=== PATIENT | female | born 1965 ===

== ENCOUNTER 2017-10-30 11:21 | Inpatient (IN) | payer OTHER ==
[2017-10-30 11:33] VITALS: O2SAT 100; BMI 16.9
--- NOTE | 2017-10-30 12:18 | ED PDOC ---
HPI: Psych/Substance Abuse Time Seen by Provider: 10/30/17 12:10 Chief Complaint (Nursing): Psychiatric Evaluation Chief Complaint (Provider): crisis eval History Per: Patient Additional Complaint(s): 52-year-old female presents to emergency department with family member at bedside for evaluation by crisis. Patient has been feeling overly emotional and sad for the past several months. Family member at bedside states the patient cries about everything and feels guilty most of the time. Patient also has bouts of anxiety and panic attacks. Patient does not take any medications for anxiety and depression. She denies any suicidal or homicidal ideation. No associated alcohol or drug use. PMD: none Past Medical History Reviewed: Historical Data, Nursing Documentation, Vital Signs Vital Signs: Last Vital Signs Temp 97 F L 10/30/17 11:31 Pulse 71 10/30/17 11:31 Resp 20 10/30/17 11:31 BP 131/77 10/30/17 11:31 Pulse Ox 100 10/30/17 11:31 - Medical History PMH: No Chronic Diseases - Surgical History Other surgeries: tubal ligation - Family History Family History: States: No Known Family Hx - Living Arrangements Living Arrangements: With Family - Social History Current smoker - smoking cessation education provided: No Alcohol: None Drugs: Denies - Allergies Allergies/Adverse Reactions: Allergies Allergy/AdvReac Type Severity Reaction Status Date / Time No Known Allergies Allergy Verified 10/30/17 12:19 Review of Systems ROS Statement: Except As Marked, All Systems Reviewed And Found Negative Constitutional: Negative for: Fever Cardiovascular: Negative for: Chest Pain Respiratory: Negative for: Cough Gastrointestinal: Negative for: Nausea, Vomiting Psych: Positive for: Other (sadness, crying). Negative for: Suicidal ideation Physical Exam - Reviewed Nursing Documentation Reviewed: Yes Vital Signs Reviewed: Yes - Physical Exam Appears: Positive for: Well, Non-toxic, No Acute Distress Skin: Positive for: Normal Color. Negative for: Rash Eye Exam: Positive for: Normal appearance Cardiovascular/Chest: Positive for: Regular Rate, Rhythm Respiratory: Positive for: Normal Breath Sounds. Negative for: Respiratory Distress Extremity: Positive for: Normal ROM Neurologic/Psych: Positive for: Alert, Oriented, Mood/Affect (flat) - Laboratory Results Result Diagrams: 10/30/17 14:00 10/30/17 14:00 - ECG Interpretation Of ECG: NSR 61 bpm, no acute changes, reviewed by PA and ED attending O2 Sat by Pulse Oximetry: 100 Pulse Ox Interpretation: Normal - Other Rad CXR X-Ray: Interpreted by Me, Viewed By Me X-Ray Interpretation: no acute finding Medical Decision Making Medical Decision Makin52 y/o female here for crisis eval Plan: Crisis consult As per crisis counselor and psychiatrist senior environmental engineer, Dr. Manzanares, patient does meet criteria for admission. Patient agrees and signed herself in. UTI noted, macrobid ordered. Patient is medically stable for psychiatric admission. Disposition - Clinical Impression Clinical Impression: Depression - Patient ED Disposition Is Patient to be Admitted: Yes - Disposition Disposition Time: 14:03 Condition: FAIR Forms: [employer] (Kosovan) - Pt Status Changed To: Hospital Disposition Of: Inpatient - Admit Certification Admit to Inpatient:: After my assessment, the patient will require hospitalization for at least two midnights. This is because of the severity of symptoms shown, intensity of services needed, and/or the medical risk in this patient being treated as an outpatient. - POA Present On Arrival: None Results - Lab Results Lab Results: 10/30/17 10/30/17 10/30/17 14:26 14:26 14:00 WBC RBC Hgb Hct MCV MCH MCHC RDW Plt Count MPV Neut % (Auto) Lymph % (Auto) [place] % (Auto) Eos % (Auto) Baso % (Auto) Neut # (Auto) Lymph # (Auto) [place] # (Auto) Eos # (Auto) Baso # (Auto) Sodium 142 Potassium 4.9 Chloride 103 Carbon Dioxide 33 H Anion Gap 11 BUN 9 Creatinine 0.5 L Est GFR ( Amer) > 60 Est GFR (Non-Af Amer) > 60 Random Glucose 96 Calcium 9.7 Total Bilirubin 0.3 AST 44 H ALT 35 Alkaline Phosphatase 67 Total Protein 7.5 Albumin 4.5 Globulin 3.0 Albumin/Globulin Ratio 1.5 Urine Color Yellow Urine Clarity Clear Urine pH 7.0 Ur Specific [place] 1.008 Urine Protein Negative Urine Glucose (UA) Neg Urine Ketones Negative Urine Blood Moderate Urine Nitrate Negative Urine Bilirubin Negative Urine Urobilinogen 0.2-1.0 Ur Leukocyte Esterase Trace Urine RBC (Auto) 10 H Urine Microscopic WBC 6 H Ur Squamous Epith Cells 1 Urine Bacteria Rare Urine Opiates Screen Negative Urine Methadone Screen Negative Ur Barbiturates Screen Negative Ur Phencyclidine Scrn Negative Ur Amphetamines Screen Negative U Benzodiazepines Scrn Negative U Oth Cocaine Metabols Negative U Cannabinoids Screen Negative Alcohol, Quantitative < 10 10/30/17 14:00 WBC 5.9 RBC 4.45 Hgb 12.6 Hct 37.7 MCV 84.7 MCH 28.3 MCHC 33.4 RDW 14.1 Plt Count 286 MPV 7.3 Neut % (Auto) 63.1 Lymph % (Auto) 27.0 [place] % (Auto) 7.8 Eos % (Auto) 0.7 Baso % (Auto) 1.4 Neut # (Auto) 3.8 Lymph # (Auto) 1.6 [place] # (Auto) 0.5 Eos # (Auto) 0.0 Baso # (Auto) 0.1 Sodium Potassium Chloride Carbon Dioxide Anion Gap BUN Creatinine Est GFR ( Amer) Est GFR (Non-Af Amer) Random Glucose Calcium Total Bilirubin AST ALT Alkaline Phosphatase Total Protein Albumin Globulin Albumin/Globulin Ratio Urine Color Urine Clarity Urine pH Ur Specific [place] Urine Protein Urine Glucose (UA) Urine Ketones Urine Blood Urine Nitrate Urine Bilirubin Urine Urobilinogen Ur Leukocyte Esterase Urine RBC (Auto) Urine Microscopic WBC Ur Squamous Epith Cells Urine Bacteria Urine Opiates Screen Urine Methadone Screen Ur Barbiturates Screen Ur Phencyclidine Scrn Ur Amphetamines Screen U Benzodiazepines Scrn U Oth Cocaine Metabols U Cannabinoids Screen Alcohol, Quantitative
[2017-10-30 14:08] LABS: BASO # 0.1 K/uL (0.0-0.2); BASO % 1.4 % (0.0-2.0); EOS % 0.7 % (0.0-4.0); HEMOGLOBIN 12.6 g/dL (12.0-16.0); LYMPH # 1.6 K/uL (1.0-4.3); MEAN CELL VOLUME 84.7 fl (81.0-99.0); MEAN CORPUSCULAR HEMOGLOBIN 28.3 pg (27.0-31.0); MEAN CORPUSCULAR HGB CONC 33.4 g/dL (33.0-37.0); MEAN PLATELET VOLUME 7.3 fl (7.2-11.7); MONO # 0.5 K/uL (0.0-0.8); MONO % 7.8 % (0.0-10.0); NEUT # 3.8 K/uL (1.8-7.0); NEUT % 63.1 % (50.0-75.0); NRBC % 0.1 % (0.0-0.0); RBC 4.45 Mil/uL (3.80-5.20); RED CELL DISTRIBUTION WIDTH 14.1 % (11.5-14.5); WHITE BLOOD COUNT 5.9 K/uL (4.8-10.8)
[2017-10-30 14:20] LABS: ALB/GLOB RATIO 1.5 (1.0-2.1); ALBUMIN 4.5 g/dL (3.5-5.0); ALT/SGPT 35 U/L (9-52); AST/SGOT 44 U/L (14-36); BLOOD UREA NITROGEN 9 mg/dl (7-17); CALCIUM 9.7 mg/dL (8.4-10.2); GFR NON-AFRICAN AMERICAN > 60
[2017-10-30 14:37] LABS: SQUAMOUS EPITHIAL 1 /hpf (0-5); URINE BACTERIA RARE (<OCC); URINE BILIRUBIN NEGATIVE (NEGATIVE); URINE BLOOD MODERATE (NEGATIVE); URINE CLARITY CLEAR (Clear); URINE COLOR YELLOW (YELLOW); URINE GLUCOSE (UA) NEG (Normal); URINE LEUKOCYTE ESTERASE TRACE Leu/uL (Negative); URINE PROTEIN NEGATIVE (NEGATIVE); URINE UROBILINOGEN 0.2-1.0 mg/dL (0.2-1.0)
[2017-10-30 15:00] LABS: BARBITURATES, UR NEGATIVE (NEGATIVE); BENZODIAZEPINES, UR NEGATIVE (NEGATIVE); OPIATES, UR NEGATIVE (NEGATIVE); PHENCYCLIDINE, UR NEGATIVE (NEGATIVE)
--- NOTE | 2017-10-30 15:41 | RAD ---
Date of service: 10/30/2017 HISTORY: clearance COMPARISON: No prior. FINDINGS: LUNGS: No active pulmonary disease. Nipple shadows are identified outlined by gas at the inferior chest bilaterally. Minimal biapical pleural thickening identified. PLEURA: No significant pleural effusion identified, no pneumothorax apparent. CARDIOVASCULAR: Normal. OSSEOUS STRUCTURES: No significant abnormalities. VISUALIZED UPPER ABDOMEN: Normal. OTHER FINDINGS: None. IMPRESSION: No acute cardiopulmonary disease appreciated. Minimal biapical pleural thickening identified.
[2017-10-30] MEDS ORDERED: Alum-Mag Hydrox-Simethicone Susp (30 mL) PO PRN (17:25)
[2017-10-30] MEDS ORDERED: Magnesium Hydroxide Susp 30 ml UD PO PRN (17:25)
[2017-10-30] MEDS ORDERED: DiphenhydrAMINE 50 mg/ml Inj IM PRN (17:25)
--- NOTE | 2017-10-30 18:14 | PCM.BM ---
<Jairon Morrison Lorenzo - Last Filed: 10/30/17 18:12> Treatment Plan Problems - Problems identified on initial assessmt Hopelessness/Helplessness Date Initiated: 10/30/17 Time Initiated: 17:30 Assessment reference: NA Status: Active Treatment assets and liabiliti Patient Assests: adapts well, cooperative, self-reliant, ADL independent, physically healthy Patient Liabilities: live alone - Milieu Protocol Maintain good personal hygiene: every shift Encourage regular showers, every shift Remind patient to perform daily oral care, every shift Assist patient to perform ADL's Maintain personal safety: every shift Educate patient to report safety concerns to staff, every shift Monitor environment for contraband/sharps Medication safety: Monitor for expected outcome, potential side effects: every shift, Assess barriers to learning: every shift, Assess readiness for medication education: every shift <Sophie Mccarthy - Last Filed: 11/04/17 15:55> Treatment assets and liabiliti Patient Assests: adapts well, cooperative, motivated, resourceful, self-reliant , ADL independent, physically healthy, good support system, negotiates basic needs, cognitively intact Patient Liabilities: live alone, financial problems Family Contact Family involvement: Family/SO is involved Family contact: Patient agrees to contact, Family has been contacted by patient , Telephone contact initiated by staff Family contact name: Carlos() ([phone]) Family contacted how many times per week?: 2 Family contact comment: Senior Grant Writer placed call to pts to discuss progress on 3NP, aftercare and anticipated discharge date. Senior Grant Writer provided clinical updates regarding pts progress and medication management. Senior Grant Writer emphasized importance of adherence with outpatient mental health services to improve functioning and ensure safety in the community and reduce risk of future hospitalizations. Pts expressed understanding of the above and expressed being supportive of pts ongoing stabilization and aftercare. Senior Grant Writer to contact pts on 11/05 to provide updates and schedule pick-up time for anticipated discharge of 11/06. Pts. denied any concerns regarding pts upcoming discharge or return home. - Goals for Treatment Patient goals for treatment: Patient to continue stabilization on 3NP through medication management and group/supportive therapy to address sxs of depression and eliminate paranoia. Patient to be encouraged to attend groups regularly to promote self-awareness, sobriety, and improve insight, compliance, coping skills and self-esteem. Patient to be provided with referral for appropriate level of aftercare to reduce risk of future hospitalizations and ensure safety in the community. Discharge/Continuing Care - Education Needs Education Needs: Family Medication, Family Diagnosis/Disease Process, Family Coping Skills, Family Community resources, Family Aftercare Safety Plan, Patient Medication, Patient Diagnosis/Disease Process, Patient Coping Skills, Patient Community resources, Patient Aftercare Safety Plan - Discharge Discharge Criteria: Tolerates medication w/o severe side effects, Free of Suicidal thoughts, Free of paranoid thoughts, Normal sleep pattern, Ability to care for self, Reduction of target symptoms Discharge to:: Home, With Family, Other ([facility]) - Treatment Team Participation Patient/Family/SO Statement: 11/04/17 13:51 Patient was invited to tx team this morning to discuss progress on 3NP and tx goals. Pt. reported improvement in sxs of depression since admission as exhibited by increase in energy, decrease in tearfulness and ability to concentrate. Pt. reported significant improvement in sleep and slight improvement in appetite. Pt. denied paranoia towards peers while on 3NP. Pt. denied AH/VH. Pt. denied SI and was able to contract for safety on 3NP. Pt. continues to present as discharge focused and does appear to be minimizing sxs. Insight limited. Pt. somewhat guarded when discussing sxs and easily irritable when discussing discharge. Psychoeducation regarding benefits of proper stabilization and appropriate aftercare referrals provided. Medication management and dx discussed at length. Handouts requested; to be provided by RN. Pt. agreeable. Anticipated discharge date 11/06. Discussed with Family/SO: Yes Was Patient/Family/SO present at Treatment Team Meeting: Yes <Brie Hooper - Last Filed: 11/05/17 10:22> - Diagnosis (1) Depression Status: Chronic Interventions: psychotherapy, pharmacotherapy 11/05/17 10:22
--- NOTE | 2017-10-30 18:24 | CP.PCM.CON ---
History of Present Illness - History of Present Illness History of Present Illness: Chief Complaint : referred for medical eval , hx of Osteoporosis , Depression HPI: 52 y/o female , no significant PMH except for Osteoporosis, was brought in by family because of worsening Depression. For the past 1 year , the patient has been very emotionally labile and depressed. She would be seen crying for no reason and feels guilty about every little problem at home. She also has been very anxious and has had panic attacks. The patient resigned from her job at [employer] because of her condition. On questioning , the patient denies any problems at home, denies any marital problems, denies problems with her 2 children (21y & 16y) nor any problem at work. Denies suicidal ideation. No CP , no SOB, occ epigastric discomfort when she skips her meals. She also denies any medical problem except for mild Osteoporosis. No medical nor surgical hx. She admits to poor appetite and weight loss of about 5-10 lbs within the past year because of depression . She is post menopausal . PMD : used to go to [facility] until she loss her insurance Full Code, Surrogate Decision maker - spouse Carlos Review of Systems - Review of Systems All systems: reviewed and no additional remarkable complaints except - Constitutional Constitutional: absent: Fever, Headache - EENT Eyes: absent: Blurred Vision, Change in Vision Ears: absent: Ear Discharge Nose/Mouth/Throat: absent: Nasal Congestion - Cardiovascular Cardiovascular: absent: Chest Pain, Edema, Palpitations - Respiratory Respiratory: absent: Cough, Dyspnea - Gastrointestinal Gastrointestinal: absent: Abdominal Pain, Constipation, Diarrhea, Nausea, Vomiting - Genitourinary Genitourinary: absent: Dysuria, Hematuria, Nocturia, Urinary Urgency - Reproductive: Female Reproductive:Female: Menopausal - Musculoskeletal Musculoskeletal: absent: Abnormal Gait, Arthralgias, Muscle Weakness - Integumentary Integumentary: absent: Rash - Neurological Neurological: absent: Confusion, Disequilibrium, Focal Weakness, Frequent Falls , Headaches, Syncope - Psychiatric Psychiatric: Anhedonia, Anxiety, Change in Appetite, Depression, Panic Attacks - Endocrine Endocrine: absent: Polydipsia, Polyphagia, Polyuria - Hematologic/Lymphatic Hematologic: absent: Easy Bleeding, Easy Bruising Past Patient History - Infectious Disease Hx of Infectious Diseases: None - Tetanus Immunizations Tetanus Immunization: Unknown - Past Medical History & Family History Past Medical History?: No Past Family History: Reviewed and not pertinent Pertinent Family History: Parents of Heart Dis - Past Social History Smoking Status: Never Smoked Chewing Tobacco Use: No Cigar Use: No Alcohol: None Drugs: Denies Home Situation {Lives}: With Family Domestic Violence: Negative - CARDIAC Hx Cardiac Disorders: No - PULMONARY Hx Respiratory Disorders: No Hx Tuberculosis: No - NEUROLOGICAL Hx Neurological Disorder: No HX Cerebrovascular Accident: No Hx Seizures: No - HEENT Hx HEENT Problems: No - RENAL Hx Chronic Kidney Disease: No - ENDOCRINE/METABOLIC Hx Endocrine Disorders: No - HEMATOLOGICAL/ONCOLOGICAL Hx Cancer: No Hx Human Immunodeficiency Virus (HIV): No - INTEGUMENTARY Hx Dermatological Problems: No - MUSCULOSKELETAL/RHEUMATOLOGICAL Hx Osteoporosis: Yes - GASTROINTESTINAL Hx Gastrointestinal Disorders: No - GENITOURINARY/GYNECOLOGICAL Hx Sexually Transmitted Disorders: No - PSYCHIATRIC Hx Anxiety: Yes Hx Depression: Yes Hx Panic Symptoms: Yes Hx Paranoia: Yes Hx Physical Abuse: No Hx Sexual Abuse: No Hx Substance Use: No - SURGICAL HISTORY Hx Surgeries: No - ANESTHESIA Hx Anesthesia: No Meds Allergies/Adverse Reactions: Allergies Allergy/AdvReac Type Severity Reaction Status Date / Time No Known Allergies Allergy Verified 10/30/17 12:19 - Medications Medications: Current Medications Acetaminophen (Tylenol 325mg Tab) 650 mg PO Q4 PRN PRN Reason: Pain, moderate (4-7) Al Hydrox/Mg Hydrox/Simethicone (Maalox Plus 30 Ml) 30 ml PO Q4 PRN PRN Reason: Dyspepsia Diphenhydramine HCl (Benadryl) 50 mg IM Q6 PRN PRN Reason: Extrapyramidal S/S Unable PO Diphenhydramine HCl (Benadryl) 50 mg PO Q6 PRN PRN Reason: Extrapyramidal Symptoms Haloperidol (Haldol) 5 mg PO Q4 PRN PRN Reason: Agitation Haloperidol Lactate (Haldol) 5 mg IM Q4 PRN PRN Reason: Agitation, Unable to Take PO Lorazepam (Ativan) 2 mg IM Q4 PRN PRN Reason: Anxiety/Agitation,Unable PO Lorazepam (Ativan) 2 mg PO Q4 PRN PRN Reason: Anxiety/Agitation Magnesium Hydroxide (Milk Of Magnesia) 30 ml PO HS PRN PRN Reason: Constipation Nitrofurantoin Macrocrystals (Macrobid) 100 mg PO Q12 BASSAM PRN Reason: Protocol Stop: 11/06/17 09:01 Physical Exam - Constitutional Appears: Non-toxic, No Acute Distress - Head Exam Head Exam: ATRAUMATIC, NORMAL INSPECTION, NORMOCEPHALIC - Eye Exam Eye Exam: EOMI, Normal appearance, PERRL Pupil Exam: NORMAL ACCOMODATION - ENT Exam ENT Exam: Mucous Membranes Moist, Normal External Ear Exam - Neck Exam Neck exam: Positive for: Full Rom. Negative for: Meningismus - Respiratory Exam Respiratory Exam: NORMAL BREATHING PATTERN. absent: Respiratory Distress - Cardiovascular Exam Cardiovascular Exam: REGULAR RHYTHM, +S1, +S2 - GI/Abdominal Exam GI & Abdominal Exam: Normal Bowel Sounds, Soft. absent: Tenderness - Extremities Exam Extremities exam: Positive for: full ROM, normal capillary refill, pedal pulses present. Negative for: calf tenderness, pedal edema - Back Exam Back exam: FULL ROM. absent: CVA tenderness (L), CVA tenderness (R) - Neurological Exam Neurological exam: Alert, CN II-XII Intact, Normal Gait, Oriented x3, Reflexes Normal - Psychiatric Exam Psychiatric exam: Flat Affect - Skin Skin Exam: Dry, Normal Color, Warm Results - Vital Signs Recent Vital Signs: Last Vital Signs Temp 97.8 F 10/30/17 17:24 Pulse 65 10/30/17 17:24 Resp 17 10/30/17 17:24 BP 113/66 10/30/17 17:24 Pulse Ox 100 10/30/17 15:58 - Labs Result Diagrams: 10/30/17 14:00 10/30/17 14:00 Labs: Laboratory Results - last 24 hr 10/30/17 10/30/17 10/30/17 14:00 14:00 14:26 WBC 5.9 RBC 4.45 Hgb 12.6 Hct 37.7 MCV 84.7 MCH 28.3 MCHC 33.4 RDW 14.1 Plt Count 286 MPV 7.3 Neut % (Auto) 63.1 Lymph % (Auto) 27.0 [place] % (Auto) 7.8 Eos % (Auto) 0.7 Baso % (Auto) 1.4 Neut # (Auto) 3.8 Lymph # (Auto) 1.6 [place] # (Auto) 0.5 Eos # (Auto) 0.0 Baso # (Auto) 0.1 Sodium 142 Potassium 4.9 Chloride 103 Carbon Dioxide 33 H Anion Gap 11 BUN 9 Creatinine 0.5 L Est GFR ( Amer) > 60 Est GFR (Non-Af Amer) > 60 Random Glucose 96 Calcium 9.7 Total Bilirubin 0.3 AST 44 H ALT 35 Alkaline Phosphatase 67 Total Protein 7.5 Albumin 4.5 Globulin 3.0 Albumin/Globulin Ratio 1.5 Urine Color Urine Clarity Urine pH Ur Specific [place] Urine Protein Urine Glucose (UA) Urine Ketones Urine Blood Urine Nitrate Urine Bilirubin Urine Urobilinogen Ur Leukocyte Esterase Urine RBC (Auto) Urine Microscopic WBC Ur Squamous Epith Cells Urine Bacteria Urine Opiates Screen Negative Urine Methadone Screen Negative Ur Barbiturates Screen Negative Ur Phencyclidine Scrn Negative Ur Amphetamines Screen Negative U Benzodiazepines Scrn Negative U Oth Cocaine Metabols Negative U Cannabinoids Screen Negative Alcohol, Quantitative < 10 10/30/17 14:26 WBC RBC Hgb Hct MCV MCH MCHC RDW Plt Count MPV Neut % (Auto) Lymph % (Auto) [place] % (Auto) Eos % (Auto) Baso % (Auto) Neut # (Auto) Lymph # (Auto) [place] # (Auto) Eos # (Auto) Baso # (Auto) Sodium Potassium Chloride Carbon Dioxide Anion Gap BUN Creatinine Est GFR ( Amer) Est GFR (Non-Af Amer) Random Glucose Calcium Total Bilirubin AST ALT Alkaline Phosphatase Total Protein Albumin Globulin Albumin/Globulin Ratio Urine Color Yellow Urine Clarity Clear Urine pH 7.0 Ur Specific [place] 1.008 Urine Protein Negative Urine Glucose (UA) Neg Urine Ketones Negative Urine Blood Moderate Urine Nitrate Negative Urine Bilirubin Negative Urine Urobilinogen 0.2-1.0 Ur Leukocyte Esterase Trace Urine RBC (Auto) 10 H Urine Microscopic WBC 6 H Ur Squamous Epith Cells 1 Urine Bacteria Rare Urine Opiates Screen Urine Methadone Screen Ur Barbiturates Screen Ur Phencyclidine Scrn Ur Amphetamines Screen U Benzodiazepines Scrn U Oth Cocaine Metabols U Cannabinoids Screen Alcohol, Quantitative - EKG Data EKG Interpreted by: Myself EKG shows normal: Sinus rhythm Rate: Normal - Imaging and Cardiology Chest x-ray Status: Report reviewed by me (Neg) Assessment & Plan (1) Depression Status: Chronic Comment: Mgt per Psych (2) UTI (urinary tract infection) Status: Acute Comment: Pt was started on Macrobid by ED physician. UA showed Slight Leukoesterase and 6 WBC. will cont with Macrobid to complete treatment
[2017-10-31 08:28] LABS: T4 11.3 ug/dl (5.5-11.0)
--- NOTE | 2017-10-31 17:42 | CARD ---
APPROVED REPORT Date of service: 10/30/2017 <Conclusion> Normal sinus rhythm Rightward axis Borderline ECG
--- NOTE | 2017-11-01 15:16 | PCM.PSYCH ---
Initial Psychiatric Evaluation - Initial Psychiatric Evaluation Chief Complaint (in patient's own words): late note for [id number] increased anxiety easily crying prolonged over several weeks Patient's Reaction to Hospitalization: pt signed in voluntarily History of Present Illness and Precipitating Events: increasing anxiety/depression since february of this year, quitting job. increasing crying . per review of records for emergeny room, pts , Carlos Segal, for collateral information. As per Carlos, the pt has been emotional since the beginning of the year which has gotten progressively worse. The pt has been crying everyday. The pt has no appetite, and has been having trouble sleeping. The pt is currently paranoid about everything. As per Carlos, everytime he has a conversation with his daughter, the pt would always interpret is as its bad or we are talking about her. The patient would twist everyones statements. The pt has been having difficulty concentrating since she has been forgetting things. The pt is currently sensitive all day long. Carlos stated that the pt would wake him up in the middle of the night and inform him that something bad will happen to him. The pt quit her job around April since she stated that everyone was against her. Two months ago, the pt was pacing around the house. According to Carlos, these behaviors are very unusual since she used to be a happy woman. The pts sister did have a history of mental illness. Carlos would like his to get better, and live a normal life again. Pt reported feeling sad, depressed, and anxious. For the last couple of months, pt stated that she has lost at least 10 pounds. According to the pt, people have been talking about her causing her to feel about anxious about her environment. Pt stated that she quit her job 4 months ago since people have been talking about her, and it is causing her to feel angry and mad. The television and computer also reminds her of people talking about her as per pt. Pt reported having problems sleeping. As soon as the pt gets up in the morning, pt reported feeling sad, and depressed where she would start crying. According to the pt, her day is always based on being sad, and tearful. Pt denied having any psychiatric treatments or counseling in the past, but admitted that she suffers from Anxiety. Current Medications: Active Medications Generic Name Dose Route Start Last Admin Trade Name Freq PRN Reason Stop Dose Admin Acetaminophen 650 mg 10/30/17 17:25 Tylenol 325mg Tab PO Q4 PRN Pain, moderate (4-7) Al Hydrox/Mg Hydrox/Simethicone 30 ml 10/30/17 17:25 Maalox Plus 30 Ml PO Q4 PRN Dyspepsia Diphenhydramine HCl 50 mg 10/30/17 17:25 Benadryl IM Q6 PRN Extrapyramidal S/S Unable PO Diphenhydramine HCl 50 mg 10/30/17 17:25 Benadryl PO Q6 PRN Extrapyramidal Symptoms Diphenhydramine HCl 50 mg 10/30/17 20:05 11/01/17 00:13 Benadryl PO 50 mg HS PRN Administration Sleep Haloperidol 5 mg 10/30/17 17:25 Haldol PO Q4 PRN Agitation Haloperidol Lactate 5 mg 10/30/17 17:25 Haldol IM Q4 PRN Agitation, Unable to Take PO Lorazepam 2 mg 10/30/17 17:25 Ativan IM Q4 PRN Anxiety/Agitation,Unable PO Lorazepam 1 mg 10/30/17 20:03 Ativan PO Q6 PRN ANXIETY/AGITATION Magnesium Hydroxide 30 ml 10/30/17 17:25 Milk Of Magnesia PO HS PRN Constipation Nitrofurantoin Macrocrystals 100 mg 10/31/17 03:00 11/01/17 09:48 Macrobid PO 11/06/17 09:01 100 mg Q12 BASSAM Administration Protocol Venlafaxine HCl 37.5 mg 11/01/17 15:15 Effexor Xr PO DAILY BASSAM Past Psychiatric History - Past Psychiatric History History of Abuse: denies History of ETOH/Drug Use: denies History of Family Illness: denies Pertinent Medical Hx (Current Medical&Sleep Prob, Allergies): Allergies Allergy/AdvReac Type Severity Reaction Status Date / Time No Known Allergies Allergy Verified 10/30/17 12:19 No Known Home Med 10/30/17 Review of Systems - Psychiatric Psychiatric: Anxiety, Panic Attacks Additional comments: crying Mental Status Examination - Personal Presentation Personal Presentation: Looks younger than stated age - Affect Affect: Constricted - Motor Activity Motor Activity: Psychomotor Retardation Additional comments: crying at times - Reliability in Providing Information Reliability in Providing Information: Fair - Speech Speech: Organized - Mood Mood: Anxious - Formal Thought Process Formal Thought Process: No Impairment - Obsessions/Compulsions Obsessions: No Compulsions: No - Cognitive Functions Orientation: Person, Place, Situation Sensorium: Alert Attention/Concentration: Attentive Judgement: Imparied, as evidence by: Other Memory: Recent intact, as evidence by: Other - Risk Risk: Diminished functioning (inreased stress, increased crying, ) DSM 5 DX - DSM 5 DSM 5 Diagnosis: generalized anxiety disorder with panic suicidal ideations - Recommended/Plan of Treatment Treatment Recommendations and Plan of Treatment: inpt milieu vital signs and clinical assessment per protocol and per clinical status prns per protocol given possible depression and anxiety will start effexor xr 37.5mg po am review with pt will need to be up titrated when discharged hospitalist consult discharge planning in progress?opd psychotherapy on going psychopharmacology review Projected ELOS: 5-7 days Prognosis: guarded Discharge Plan and Discharge Criteria: safety - Smoking Cessation Smoking Cessation Initiated: No Reason for not providing: pt defers
--- NOTE | 2017-11-01 15:28 | PCM.PYCHPN ---
Psychiatric Progress Note - Psychiatric Progress Note Patient seen today, length of contact: chart reviewed case discussed with team Patient Chief Complaint: reports discussing processing past related time spent with son etc reportedly slept last ate and completed adls, did have visits from reported as positive. i Problems Identified/Issues Discussed: alteration in mood alteration in coping Medical Problems: per chart Diagnostic Results: per psychiatry per medicine per nursing per social work per receational therapy DSM 5 Symptoms Update: alteration in mood anxiety and depressing Medication Change: Yes (effexor xr 37.5 po day) Medical Record Reviewed: Yes Consults ordered or reviewed: pt seen hospitalist Mental Status Examination - Cognitive Function Orientation: Person, Place, Situation Attention: WNL Concentration: WNL Association: WNL Fund of Knowledge: WN Decription of patient's judgement and insights: impaired - Mood Mood: Anxious - Affect Affect: Constricted - Formal Thought Process Formal Thought Process: No Impairment - Homicidal Ideation Homicidal Ideation: No Goal/Treatment Plan - Goal/Treatment Plan Progress Toward Problem(s) and Goals/Treatment Plan: inpt milieu vital signs and clinical assessment per protocol and per clinical status prns per protocol discharge planning in progress?opd psychotherapy on going psychopharmacology review Estimated Date of D/C: 11/03/17 If changed, why: safety - Smoking Cessation Smoking Cessation Initiated: No Reason for not providing: pt defers
[2017-11-01] MEDS: Venlafaxine 37.5 mg ER Cap PO SCH (16:38)
[2017-11-02] MEDS: Venlafaxine 37.5 mg ER Cap PO SCH (09:37)
--- NOTE | 2017-11-02 12:50 | PCM.PYCHPN ---
Psychiatric Progress Note - Psychiatric Progress Note Patient seen today, length of contact: chart reviewed case discussed with team Patient Chief Complaint: I can't get over the loss of my sister Problems Identified/Issues Discussed: pt on evaluation reported she continues to feel down and sad, presenting with tearful affect relates that to the loss of her sister and parents, pt reported at current time she feels paranoid beleiving that other people around are talking about her stated hearing whispering non command auditory hallucinations , pt reported decreased sleep with early insomnia, decreased appetite , with significant weight loss lately, discussed starting remeron 7.5mg qhs for improving sleep and appetite , also starting risperidone for AH encouraged compliance and attending groups, pt denied any current suicidal or homicidal ideation DSM 5 Symptoms Update: major depression severe with psychotic features Medication Change: Yes (start remeron) Medical Record Reviewed: Yes Mental Status Examination - Cognitive Function Orientation: Person, Place, Situation Attention: WNL Concentration: WNL Association: WNL Fund of Knowledge: WNL Decription of patient's judgement and insights: partial insight fair judgment - Mood Mood: Depressed, Anxious - Affect Affect: Constricted, Depressed - Speech Speech: Soft - Formal Thought Process Formal Thought Process: No Impairment, Hallucinations, Paranoia Psychotic Thoughts and Behaviors: non command auditory hallucinations - Suicidal Ideation Suicidal Ideation: No - Homicidal Ideation Homicidal Ideation: No Goal/Treatment Plan - Goal/Treatment Plan Need for Continued Stay: Severe depression anxiety, Discharge may exacerbated symptoms Progress Toward Problem(s) and Goals/Treatment Plan: discontinue effexor start remeron 7.5mg qhs risperidone 0.5mg qhs CBT group and supportive therapy Estimated Date of D/C: 11/03/17
[2017-11-02] MEDS: Risperidone M tab 0.5MG PO SCH (21:08)
--- NOTE | 2017-11-03 15:12 | PCM.PYCHPN ---
Psychiatric Progress Note - Psychiatric Progress Note Patient seen today, length of contact: chart reviewed case discussed with team Patient Chief Complaint: I am worried about my financial situation Problems Identified/Issues Discussed: pt on evaluation , presenting with anxious mood, affect depressed and anxious, pt reported being worried about her financial situation and inability to find a job CBT provided , discussed with pt the need to concentrate on her recovery and on developing alternative positive thought, encouraged pt to attend groups, she reported partial clearing of the auditory hallucinations, denied command hallucinations, denied thoughts of self harm DSM 5 Symptoms Update: major depression recurrent severe with psychotic features Medication Change: No (start remeron) Medical Record Reviewed: Yes Mental Status Examination - Cognitive Function Orientation: Person, Place, Situation Attention: WNL Concentration: Poor Association: WNL Fund of Knowledge: WNL Decription of patient's judgement and insights: partial insight fair judgment - Mood Mood: Depressed, Anxious - Affect Affect: Constricted, Depressed - Speech Speech: Soft - Formal Thought Process Formal Thought Process: No Impairment, Hallucinations, Paranoia Psychotic Thoughts and Behaviors: non command auditory hallucinations - Suicidal Ideation Suicidal Ideation: No - Homicidal Ideation Homicidal Ideation: No Goal/Treatment Plan - Goal/Treatment Plan Need for Continued Stay: Severe depression anxiety, Discharge may exacerbated symptoms Progress Toward Problem(s) and Goals/Treatment Plan: remeron 7.5mg qhs increase gradually risperidone 0.5mg qhs increase gradually CBT group and supportive therapy Estimated Date of D/C: 11/06/17
[2017-11-03] MEDS: Risperidone M tab 0.5MG PO SCH (21:23)
--- NOTE | 2017-11-04 13:24 | PCM.PYCHPN ---
Psychiatric Progress Note - Psychiatric Progress Note Patient seen today, length of contact: chart reviewed case discussed with team Patient Chief Complaint: It has been hard for me to concentrate with my depression Problems Identified/Issues Discussed: pt on evaluation , continues to be anxious about discharge, complained of poor concentration related to her depression , reported improved sleep but continues to have poor appetite, pt noted to be less isolative in her room, attempting to attend groups, and interacting more with staff and other patients ,reported partial clearing off of the paranoid delusions , denied command hallucinations, denied thoughts of self harm DSM 5 Symptoms Update: major depression with psychotic features Medication Change: Yes (increase remeron) Medical Record Reviewed: Yes Mental Status Examination - Cognitive Function Orientation: Person, Place, Situation Attention: WNL Concentration: Poor Association: WNL Fund of Knowledge: WNL Decription of patient's judgement and insights: partial insight fair judgment - Mood Mood: Depressed, Anxious - Affect Affect: Constricted, Depressed - Speech Speech: Soft - Formal Thought Process Formal Thought Process: No Impairment, Paranoia - Suicidal Ideation Suicidal Ideation: No - Homicidal Ideation Homicidal Ideation: No Goal/Treatment Plan - Goal/Treatment Plan Need for Continued Stay: Severe depression anxiety, Discharge may exacerbated symptoms Progress Toward Problem(s) and Goals/Treatment Plan: increase remeron 15mg qhs risperidone 0.5mg qhs CBT group and supportive therapy Estimated Date of D/C: 11/06/17
[2017-11-04] MEDS: Risperidone M tab 0.5MG PO SCH (21:05)
[2017-11-05 09:12] VITALS: PULSE 96; RESP 20
--- NOTE | 2017-11-05 10:27 | PCM.PYCHPN ---
Psychiatric Progress Note - Psychiatric Progress Note Patient seen today, length of contact: chart reviewed case discussed with team Patient Chief Complaint: I am feeling better Problems Identified/Issues Discussed: pt evaluated, reported feeling better. less anxious and less depressed, brighter affect, reported clearing off of the paranoid delusions, improved sleep and appetite, no reported side effects of medications, observed more interactive with staff and other patients, denied any current thoughts of self harm, denied perceptual disturbances DSM 5 Symptoms Update: major depression with psychotic features Medication Change: No Medical Record Reviewed: Yes Mental Status Examination - Cognitive Function Orientation: Person, Place, Situation Memory: Intact Attention: WNL Concentration: Poor Association: WNL Fund of Knowledge: WNL Decription of patient's judgement and insights: partial insight fair judgment - Mood Mood: Anxious - Affect Affect: Constricted, Depressed - Speech Speech: Soft - Formal Thought Process Formal Thought Process: No Impairment, Paranoia Psychotic Thoughts and Behaviors: pt reported clearing off of the paranoid delusions, denied any current perceptual disturbances - Suicidal Ideation Suicidal Ideation: No - Homicidal Ideation Homicidal Ideation: No Goal/Treatment Plan - Goal/Treatment Plan Need for Continued Stay: Severe depression anxiety, Discharge may exacerbated symptoms Progress Toward Problem(s) and Goals/Treatment Plan: remeron 15mg qhs risperidone 0.5mg qhs CBT group and supportive therapy Estimated Date of D/C: 11/06/17
[2017-11-05] MEDS: Risperidone M tab 0.5MG PO SCH (21:29)
[2017-11-06 09:20] VITALS: BP 91/60; TEMP 96.1
--- NOTE | 2017-11-06 13:34 | PCM.PYCHDC ---
Mental Status Examination - Mental Status Examination Orientation: Person, Place, Situation Memory: Intact Mood: Neutral Affect: Broad Speech: Appropriate Attention: WNL Concentration: WNL Association: WNL Fund of Knowledge: WNL Formal Thought Process: No Impairment Description of patient's judgement and insight: partial insight fair judgment Psychotic Thoughts and Behaviors: pt on discharge denied psychotic symptoms and non elicited Suicidal Ideation: No Current Homicidal Ideation?: No Discharge Summary - Discharge Note Reason for Hospitalization: increasing anxiety/depression since february of this year, quitting job. increasing crying . per review of records for emergeny room, pts , Carlos Segal, for collateral information. As per Carlos, the pt has been emotional since the beginning of the year which has gotten progressively worse. The pt has been crying everyday. The pt has no appetite, and has been having trouble sleeping. The pt is currently paranoid about everything. As per Carlos, everytime he has a conversation with his daughter, the pt would always interpret is as its bad or we are talking about her. The patient would twist everyones statements. The pt has been having difficulty concentrating since she has been forgetting things. The pt is currently sensitive all day long. Carlos stated that the pt would wake him up in the middle of the night and inform him that something bad will happen to him. The pt quit her job around April since she stated that everyone was against her. Two months ago, the pt was pacing around the house. According to Carlos, these behaviors are very unusual since she used to be a happy woman. The pts sister did have a history of mental illness. Carlos would like his to get better, and live a normal life again. Pt reported feeling sad, depressed, and anxious. For the last couple of months, pt stated that she has lost at least 10 pounds. According to the pt, people have been talking about her causing her to feel about anxious about her environment. Pt stated that she quit her job 4 months ago since people have been talking about her, and it is causing her to feel angry and mad. The television and computer also reminds her of people talking about her as per pt. Pt reported having problems sleeping. As soon as the pt gets up in the morning, pt reported feeling sad, and depressed where she would start crying. According to the pt, her day is always based on being sad, and tearful. Pt denied having any psychiatric treatments or counseling in the past, but admitted that she suffers from Anxiety. Psychiatric History (includes Medical, Family, Personal Hx): no hx of previous psychiatric treatment Consultations:: List each consultation separately and include: 1. Reason for request. 2. Findings. 3. Follow-up Summary of Hospital Course include:: 1. Description of specific treatment plan utilized for patients during their course of treatmen. 2. Summarize the time- course for resolution of acute symptoms and/or regressed behaviors. 3. Describe issues identified and worked on during hospitalization. 4. Describe medication utilized. 5. Describe medical problems identified and treated. 6. Reassessment of suicide risk Summary of Hospital Course: pt on admission presented with depressed mood tearful and anxious affect, poor sleep and poor appetite pt was guarded and paranoid, with ideas of reference believing that people are talking about her she was started on remeron, it was increased to 15mg qhs, also started on risperidone 0.5mg qhs CBT group and supportive therapy provided pt gradually became less guarded and less paranoid , participated in treatment and attended groups, no reported side effects of medications on discharge mental status was stable, pt denied any current suicidal or homicidal ideation denied perceptual disturbances follow up arranged by social media marketing analyst at [facility] outpatient services - Diagnosis (1) Depression Current Visit: Yes Status: Chronic - Final Diagnosis (DSM 5) Condition upon Discharge: FAIR DSM 5: major depression severe with psychotic features Disposition: HOME/ ROUTINE Follow-up Treatment Plan: remeron 15mg qhs risperidone 0.5mg qhs CBT group and supportive therapy Prescriptions/Medication Reconciliation: Mirtazapine [Remeron] 15 mg PO HS 30 Days #30 tab risperiDONE [RisperDAL Tab] 0.5 mg PO HS 30 Days #30 tab - Antipsychotic Medications Pt discharged on 2 or more routine antipsychotic medications: No
== END 2017-11-06 14:25 | disposition home or self-care (01) | DRG 430 ==
LOC: H.ER 11:21 → H.ERHOLD 15:46 → H.PSYCH 17:10
PROVIDERS: ADMIT Psychiatry & Neurology Psychiatry; ATTEND Psychiatry & Neurology Psychiatry
PROC: GZHZZZZ Group Psychotherapy (ICD-10-PCS; principal; 2017-10-30)
PROC: GZ58ZZZ Individual Psychotherapy, Cognitive-Behavioral (ICD-10-PCS; 2017-10-30)
DX: F33.3 Major depressive disorder, recurrent, severe with psychotic symptoms (principal); N39.0 Urinary tract infection, site not specified; R45.851 Suicidal ideations; F41.0 Panic disorder [episodic paroxysmal anxiety]; F41.1 Generalized anxiety disorder; G47.00 Insomnia, unspecified; M81.0 Age-related osteoporosis without current pathological fracture

== ENCOUNTER 2018-06-14 10:38 | Inpatient (IN) | payer OTHER, SELFPAY ==
[2018-06-14 11:02] VITALS: BMI 18.3
[2018-06-14 13:07] LABS: BASO # 0.1 K/uL (0.0-0.2); BASO % 1.3 % (0.0-2.0); EOS # 0.1 K/uL (0.0-0.7); EOS % 0.8 % (0.0-4.0); HEMOGLOBIN 12.3 g/dL (12.0-16.0); LYMPH # 1.5 K/uL (1.0-4.3); LYMPH % 23.2 % (20.0-40.0); MEAN CORPUSCULAR HEMOGLOBIN 27.2 pg (27.0-31.0); MEAN CORPUSCULAR HGB CONC 32.4 g/dL (33.0-37.0); MEAN PLATELET VOLUME 7.3 fl (7.2-11.7); MONO # 0.4 K/uL (0.0-0.8); MONO % 6.8 % (0.0-10.0); NEUT # 4.4 K/uL (1.8-7.0); NEUT % 67.9 % (50.0-75.0); RBC 4.52 Mil/uL (3.80-5.20); RED CELL DISTRIBUTION WIDTH 14.1 % (11.5-14.5); WHITE BLOOD COUNT 6.5 K/uL (4.8-10.8)
[2018-06-14 13:10] LABS: BLOOD UREA NITROGEN 12 mg/dl (7-17); CALCIUM 9.7 mg/dL (8.4-10.2); GFR NON-AFRICAN AMERICAN > 60
--- NOTE | 2018-06-14 13:24 | ED PDOC ---
HPI: Psych/Substance Abuse Time Seen by Provider: 06/14/18 11:13 Chief Complaint (Nursing): Psychiatric Evaluation Chief Complaint (Provider): Paranoia History Per: Family () History/Exam Limitations: clinical condition (paranoia) Onset/Duration Of Symptoms: Persistent (1.5 years) Suicide/Self Injury Attempted (Context): None Associated Symptoms: Paranoia. denies: Suicidal Thoughts, Suicidal Plan Additional History Per: Additional Complaint(s): 53yo female, otherwise well, brought to ER by due to worsening odd behavior over the past 1.5 years. Per , the patient's symptoms have been worsening; he states she initially was anxious but now is fearful of everything. He states she initially thought people were talking about her but now she thinks "bad things will happen." Per , she has developed fear of odd objects and states if a chair is misplaced, she thinks its a bad sign. He states certain colors elicit paranoia, and that patient has had visual and auditory hallucinations as well. He states she has exhibited memory loss; patient was unable to find way home from a [place]ism 2 [place], which she has gone to for years. He additionally states the patient's sister has similar symptoms, and she will not leave her home. Currently patient appears internally preoccupied; when asked why she is here she shares a story about having gone to work and being told she doesn't work there. Patient unable to provide further details. When asked direct questions regarding medical history or medical symptoms, patient not responding as well. ROS limited due to patient not responding to questions. PMD: None Past Medical History Reviewed: Historical Data, Nursing Documentation, Vital Signs Vital Signs: Last Vital Signs Temp 98.2 F 06/14/18 11:01 Pulse 87 06/14/18 11:01 Resp 16 06/14/18 11:01 BP 126/75 06/14/18 11:01 Pulse Ox 97 06/14/18 11:01 - Medical History PMH: Anxiety, Depression, Osteoporosis, Paranoia Denies: Diabetes, Hepatitis, HIV, HTN, Chronic Kidney Disease, Seizures, Sexually Transmitted Disease - Surgical History Surgical History: No Surg Hx - Family History Family History: States: No Known Family Hx - Living Arrangements Living Arrangements: With Family - Home Medications Home Medications: Ambulatory Orders Medication Instructions Recorded No Known Home Med 06/14/18 - Allergies Allergies/Adverse Reactions: Allergies Allergy/AdvReac Type Severity Reaction Status Date / Time No Known Allergies Allergy Verified 10/30/17 12:19 Review of Systems Review Of Systems: ROS cannot be obtained secondary to pt's inabilty to answer questions. (paranoia, patient not responding to questions) Psych: Positive for: Psychosis Physical Exam - Reviewed Nursing Documentation Reviewed: Yes Vital Signs Reviewed: Yes - Physical Exam Appears: Positive for: No Acute Distress Head Exam: Positive for: ATRAUMATIC, NORMAL INSPECTION, NORMOCEPHALIC Skin: Positive for: Normal Color, Warm, Dry Eye Exam: Positive for: EOMI, PERRL Neck: Positive for: Supple Cardiovascular/Chest: Positive for: Regular Rate, Rhythm. Negative for: Tachycardia Respiratory: Positive for: Normal Breath Sounds. Negative for: Respiratory Distress Gastrointestinal/Abdominal: Positive for: Normal Exam, Soft Back: Positive for: Normal Inspection Extremity: Positive for: Normal ROM. Negative for: Pedal Edema Neurological/Psych: Positive for: Awake, Alert, Normal Tone, Oriented (unable to assess as patient is not responding to questions), Mood/Affect (internally pr eoccupied, not answering questions) - Laboratory Results Result Diagrams: 06/14/18 12:45 06/14/18 12:45 - ECG O2 Sat by Pulse Oximetry: 97 (RA) Pulse Ox Interpretation: Normal Medical Decision Making Medical Decision Making: Patient presents with signs of psychiatric disorder, r/o organic vs. inorganic cause Medical workup including Brain CT, thyroid levels, and tox screen Crisis evaluation ordered Contact information for : Carlos Segal [phone] [id number] Patient medically cleared for admission Per Dr. Hooper, patient to be admitted due to major depression disorder w/ psychotic features Scribe Attestation: Documented by Mala Duvall acting as a scribe for Aishwarya Renteria MD. Provider Attestation: All medical record entries made by the Scribe were at my direction and personally dictated by me. I have reviewed the chart and agree that the record a ccurately reflects my personal performance of the history, physical exam, medical decision making, and the department course for this patient. I have also personally directed, reviewed, and agree with the discharge instructions and disposition. Disposition - Clinical Impression Clinical Impression: Depression - Patient ED Disposition Is Patient to be Admitted: Yes - Disposition Disposition Time: 13:12 Condition: STABLE
--- NOTE | 2018-06-14 13:32 | CT ---
Date of service: 06/14/2018 PROCEDURE: CT HEAD WITHOUT CONTRAST. HISTORY: AMS COMPARISON: None available. TECHNIQUE: Axial computed tomography images were obtained through the head/brain without intravenous contrast. Radiation dose: Total exam DLP = 716.24 mGy-cm. This CT exam was performed using one or more of the following dose reduction techniques: Automated exposure control, adjustment of the mA and/or kV according to patient size, and/or use of iterative reconstruction technique. FINDINGS: HEMORRHAGE: No intracranial hemorrhage. BRAIN: Normal reina-white matter differentiation and density are appreciated throughout the cerebrum and cerebellum with the brainstem appearing unremarkable as well. There is no mass effect. There is no suspicious extra-axial fluid collection and the midline brain anatomy appears diffusely unremarkable. VENTRICLES: Unremarkable. No hydrocephalus. CALVARIUM: Unremarkable. PARANASAL SINUSES: Unremarkable as visualized. No significant inflammatory changes. MASTOID AIR CELLS: Unremarkable as visualized. No inflammatory changes. OTHER FINDINGS: None. IMPRESSION: Unremarkable unenhanced head CT.
[2018-06-14 13:42] LABS: T3 1.18 nmol/L (1.49-2.60)
[2018-06-14 14:29] LABS: SQUAMOUS EPITHIAL 3 /hpf (0-5); URINE BACTERIA RARE (<OCC); URINE BILIRUBIN NEGATIVE (NEGATIVE); URINE BLOOD MODERATE (NEGATIVE); URINE CLARITY SLIGHTY-CLOUDY (Clear); URINE COLOR YELLOW (YELLOW); URINE GLUCOSE (UA) NEG (NEGATIVE); URINE LEUKOCYTE ESTERASE MOD Leu/uL (Negative); URINE PROTEIN 30 mg/dL (NEGATIVE); URINE UROBILINOGEN 0.2-1.0 mg/dL (0.2-1.0)
[2018-06-14 14:38] LABS: BARBITURATES, UR NEGATIVE (NEGATIVE); BENZODIAZEPINES, UR NEGATIVE (NEGATIVE); OPIATES, UR NEGATIVE (NEGATIVE); PHENCYCLIDINE, UR NEGATIVE (NEGATIVE)
[2018-06-14] MEDS ORDERED: DiphenhydrAMINE 50 mg/ml Inj IM PRN (16:17)
[2018-06-14] MEDS ORDERED: Magnesium Hydroxide Susp 30 ml UD PO PRN (16:17)
[2018-06-14] MEDS ORDERED: Alum-Mag Hydrox-Simethicone Susp (30 mL) PO PRN (16:17)
[2018-06-14 16:24] VITALS: O2SAT 97
--- NOTE | 2018-06-14 18:11 | CP.PCM.CON ---
History of Present Illness - History of Present Illness History of Present Illness: 53 y/o F with PMH depression , not on any medications ,brought by for evaluation for odd behaviour and paranoia. History obtained from patient.At presented she is unable to provide any history or reason as to why she is in psychiatry unit. She states that was diagnosed with depression and has been hospitalized before but has not been taking any medications recently. She denies any suicidal thoughts or ideation , denies any visual or auditory hallucinations. As per chart patient has been fearful that bad things will happe. Medicine was consulted for medical clearance She denies any chest pain , SOB, palpitations, PND, orthopnea ,urinary symptoms, changes in bowel movements, cold or hot intolerance , weight gain or loss. 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, denies smoking , ETOH or drug abuse ROS ;14 point review of system negative except above Code status : Full Review of Systems - Review of Systems All systems: reviewed and no additional remarkable complaints except Past Patient History - Infectious Disease Hx of Infectious Diseases: None - Tetanus Immunizations Tetanus Immunization: Unknown - Past Medical History & Family History Past Medical History?: No - Past Social History Smoking Status: Never Smoked Chewing Tobacco Use: No Cigar Use: No Alcohol: None Drugs: Denies Home Situation {Lives}: With Family Domestic Violence: Negative - CARDIAC Hx Hypertension: No - PULMONARY Hx Tuberculosis: No - NEUROLOGICAL Hx Seizures: No - HEENT Hx HEENT Problems: No - RENAL Hx Chronic Kidney Disease: No - ENDOCRINE/METABOLIC Hx Endocrine Disorders: No - HEMATOLOGICAL/ONCOLOGICAL Hx Human Immunodeficiency Virus (HIV): No - INTEGUMENTARY Hx Dermatological Problems: No - MUSCULOSKELETAL/RHEUMATOLOGICAL Hx Osteoporosis: Yes - GASTROINTESTINAL Hx Gastrointestinal Disorders: No - GENITOURINARY/GYNECOLOGICAL Hx Sexually Transmitted Disorders: No - PSYCHIATRIC Hx Anxiety: Yes Hx Depression: Yes Hx Paranoia: Yes - SURGICAL HISTORY Hx Surgeries: Yes Hx Section: Yes - ANESTHESIA Hx Anesthesia: Yes Hx Anesthesia Reactions: No Hx Malignant Hyperthermia: No Meds Allergies/Adverse Reactions: Allergies Allergy/AdvReac Type Severity Reaction Status Date / Time No Known Allergies Allergy Verified 10/30/17 12:19 - Medications Medications: Current Medications Acetaminophen (Tylenol 325mg Tab) 650 mg PO Q4 PRN PRN Reason: Pain, moderate (4-7) Al Hydrox/Mg Hydrox/Simethicone (Maalox Plus 30 Ml) 30 ml PO Q4 PRN PRN Reason: Dyspepsia Benztropine Mesylate (Cogentin) 0.5 mg PO HS BASSAM Diphenhydramine HCl (Benadryl) 50 mg IM Q6 PRN PRN Reason: Extrapyramidal S/S Unable PO Diphenhydramine HCl (Benadryl) 50 mg PO Q6 PRN PRN Reason: Extrapyramidal Symptoms Haloperidol (Haldol) 5 mg PO Q4 PRN PRN Reason: Agitation Haloperidol Lactate (Haldol) 5 mg IM Q4 PRN PRN Reason: Agitation, Unable to Take PO Lorazepam (Ativan) 1 mg PO Q4 PRN PRN Reason: Anxiety/Agitation Lorazepam (Ativan) 1 mg IM Q4 PRN PRN Reason: Anxiety/Agitation,Unable PO Magnesium Hydroxide (Milk Of Magnesia) 30 ml PO HS PRN PRN Reason: Constipation Mirtazapine (Remeron) 7.5 mg PO HS BASSAM Risperidone (Risperdal M-Tab) 1 mg PO HS BASSAM Physical Exam - Constitutional Appears: Non-toxic, No Acute Distress - Head Exam Head Exam: ATRAUMATIC, NORMAL INSPECTION, NORMOCEPHALIC - Eye Exam Eye Exam: EOMI, Normal appearance, PERRL Pupil Exam: NORMAL ACCOMODATION - ENT Exam ENT Exam: Mucous Membranes Moist, Normal Exam - Neck Exam Neck exam: Positive for: Full Rom, Normal Inspection - Respiratory Exam Respiratory Exam: Clear to Auscultation Bilateral, NORMAL BREATHING PATTERN. absent: Rales, Rhonchi, Wheezes - Cardiovascular Exam Cardiovascular Exam: REGULAR RHYTHM, RRR, +S1, +S2. absent: JVD - GI/Abdominal Exam GI & Abdominal Exam: Normal Bowel Sounds, Soft. absent: Distended, Guarding, Rebound, Tenderness - Rectal Exam Rectal Exam: Deferred - Extremities Exam Extremities exam: Positive for: normal capillary refill, normal inspection, pedal pulses present. Negative for: pedal edema - Back Exam Back exam: NORMAL INSPECTION - Neurological Exam Neurological exam: Alert, Oriented x3 - Psychiatric Exam Psychiatric exam: Depressed, Flat Affect - Skin Skin Exam: Dry, Intact, Normal Color, Warm Results - Vital Signs Recent Vital Signs: Last Vital Signs Temp 98.9 F 06/14/18 14:46 Pulse 83 06/14/18 14:46 Resp 16 06/14/18 15:06 BP 123/63 06/14/18 14:46 Pulse Ox 97 06/14/18 16:24 - Labs Result Diagrams: 06/14/18 12:45 06/14/18 12:45 Labs: Laboratory Results - last 24 hr 06/14/18 06/14/18 06/14/18 12:45 12:45 14:10 WBC 6.5 RBC 4.52 Hgb 12.3 Hct 37.9 MCV 84.0 MCH 27.2 MCHC 32.4 L RDW 14.1 Plt Count 313 MPV 7.3 Neut % (Auto) 67.9 Lymph % (Auto) 23.2 [place] % (Auto) 6.8 Eos % (Auto) 0.8 Baso % (Auto) 1.3 Neut # (Auto) 4.4 Lymph # (Auto) 1.5 [place] # (Auto) 0.4 Eos # (Auto) 0.1 Baso # (Auto) 0.1 Sodium 138 Potassium 4.5 Chloride 100 Carbon Dioxide 29 Anion Gap 14 BUN 12 Creatinine 0.5 L Est GFR ( Amer) > 60 Est GFR (Non-Af Amer) > 60 Random Glucose 105 Calcium 9.7 Thyroxine (T4) 12.6 H Total T3 1.18 L TSH 3rd Generation 1.95 Urine Color Urine Clarity Urine pH Ur Specific [place] Urine Protein Urine Glucose (UA) Urine Ketones Urine Blood Urine Nitrate Urine Bilirubin Urine Urobilinogen Ur Leukocyte Esterase Urine RBC (Auto) Urine Microscopic WBC Ur Squamous Epith Cells Urine Bacteria Urine Opiates Screen Negative Urine Methadone Screen Negative Ur Barbiturates Screen Negative Ur Phencyclidine Scrn Negative Ur Amphetamines Screen Negative U Benzodiazepines Scrn Negative U Oth Cocaine Metabols Negative U Cannabinoids Screen Negative Alcohol, Quantitative < 10 06/14/18 14:10 WBC RBC Hgb Hct MCV MCH MCHC RDW Plt Count MPV Neut % (Auto) Lymph % (Auto) [place] % (Auto) Eos % (Auto) Baso % (Auto) Neut # (Auto) Lymph # (Auto) [place] # (Auto) Eos # (Auto) Baso # (Auto) Sodium Potassium Chloride Carbon Dioxide Anion Gap BUN Creatinine Est GFR ( Amer) Est GFR (Non-Af Amer) Random Glucose Calcium Thyroxine (T4) Total T3 TSH 3rd Generation Urine Color Yellow Urine Clarity Slighty-cloudy Urine pH 7.0 Ur Specific [place] 1.011 Urine Protein 30 Urine Glucose (UA) Neg Urine Ketones 20 Urine Blood Moderate Urine Nitrate Negative Urine Bilirubin Negative Urine Urobilinogen 0.2-1.0 Ur Leukocyte Esterase Mod Urine RBC (Auto) 26 H Urine Microscopic WBC 10 H Ur Squamous Epith Cells 3 Urine Bacteria Rare Urine Opiates Screen Urine Methadone Screen Ur Barbiturates Screen Ur Phencyclidine Scrn Ur Amphetamines Screen U Benzodiazepines Scrn U Oth Cocaine Metabols U Cannabinoids Screen Alcohol, Quantitative Assessment & Plan - Assessment and Plan (Free Text) Assessment: 53 y/o F with PMH depression not on any medications brought to ER for evaluation for odd behaviour . Medicine consulted for medical management 1.Depression vs pseudo depression CT head showed no acute pathology TSH - wnl with slight elevation of T3 and T4( no need for treatment )Can recheck in couple 1 week UA clear Continue management as per psychiatry Patient is medically stable
--- NOTE | 2018-06-14 19:05 | PCM.BM ---
<Jairon Morrison - Last Filed: 06/14/18 19:02> Treatment Plan Problems - Problems identified on initial assessmt Feelings of Worthlessness Date Initiated: 06/14/18 Time Initiated: 17:00 Assessment reference: NA Status: Active Social Isolation Date Initiated: 06/14/18 Time Initiated: 17:00 Assessment reference: NA Status: Active Altered Sleep Patterns Assessment reference: NA Status: Monitor Treatment assets and liabiliti Patient Assests: adapts well, cooperative, motivated, resourceful, self-reliant, ADL independent, physically healthy, good support system, negotiates basic needs, cognitively intact <Sophie Mccarthy - Last Filed: 06/16/18 14:50> Treatment assets and liabiliti Patient Assests: adapts well, cooperative, educated (Pt. reports completing high school.), good support system (Pt. reports having a supportive relationship with . Pt. reports loving relationship with two children (teenager/adult).), negotiates basic needs, cognitively intact Patient Liabilities: relationship conflicts (Pt. reported recent martial discord upon admission but is currently denying.), medical problems (pt. reports hx of osteoporosis.), other (Pt. is primarily nepali speaking.) Family Contact Family involvement: Family/SO is involved Family contact: Patient agrees to contact, Family has been contacted by patient, Telephone contact initiated by staff Family contact name: Carlos [phone] Family contact comment: Senior Teradata Developer placed call to pts /primary support (Carlos [phone]) to discuss pts progress on 3NP, collect further collateral, and address family concerns. Senior Teradata Developer provided clinical updates regarding pts presentation on 3NP, impaired insight into sxs/need for tx, and need for further stabilization. Pts expressed understanding of the above and stated that pt. presented as paranoid during visitation on 06/15. Pts reported that pt. believes she is being lied to and she is actually being imprisoned. Pts reports that pts bx began to change following the of her sister (3 years ago) and mother (5 years ago). Pts reports pt. no longer communicates her feelings with him and keeps everything inside. Psychoeducation regarding genetic disposition, trauma, and benefits of therapy provided. Pts reports pt. appeared to be almost 100% upon last discharge but began to decompensate in February 2018. Pts reported currently being in the process of finding insurance of pt. Information about 3NPs ability to fill 1 month of medications upon discharge and jose care. Pts expressed understanding and requested that brief writer continue to provide clinical updates through-out pts hospitalization. Pts reported not being able to visit pt. during evening visitation hours secondary to employment. Pts requested permission to visit pt. after 7pm, stating that it is important that pt. see family and that this was permitted during pts last hospitalization. Senior Teradata Developer left for nurse system development manager Kirsty Singh regarding the above. Senior Teradata Developer awaiting response. - Goals for Treatment Patient goals for treatment: Patient to continue stabilization on 3NP through medication management and group/supportive therapy. Patient to be encouraged to attend groups regularly to promote self-awareness, reality testing, and improve insight, compliance, and coping skills. Patient to be provided with referral for appropriate level of aftercare to reduce risk of future hospitalizations and ensure safety in the community. Pt. currently exhibiting poor insight into precursors to hospitalization, illness, or need for tx. Pt unable to independently set tx goals. Pt. identified tx goal as going home. Tx team to continue to meet with pt. through-out stabilization to discuss tx goals. Discharge/Continuing Care - Education Needs Education Needs: Family Medication, Family Diagnosis/Disease Process, Family Community resources, Family Aftercare Safety Plan, Patient Medication, Patient Diagnosis/Disease Process, Patient Coping Skills, Patient Community resources, Patient Aftercare Safety Plan - Discharge Discharge Criteria: Tolerates medication w/o severe side effects, Free of Suicidal thoughts, Free of paranoid thoughts, Normal sleep pattern, Reduction of target symptoms Discharge to:: Home, With Family - Treatment Team Participation Patient/Family/SO Statement: 06/16/18 14:53 Patient attended tx team this morning to discuss progress on 3NP and tx goals. Pt. denied sxs of depression, stating Im better now. Pt. denied current SI/HI and was able to contract for safety. Pt. denied reporting SI prior to admission. Pt. denied any stressors contributing to acute onset of sxs despite having reported marital discord upon admission. Pt. evasive and easily irritable. Pt. remains anxious as exhibited by restlessness, poor focus, and pressured speech. Pt. continues to demonstrate poor insight as exhibited by inability to identify precursors to hospitalization or need for tx. Pt. expressed not believing she is on a psychiatric unit to receive mental health tx, stating I know something else is going on. Significant psychoeducation regarding nature of tx provided on 3NP, importance of proper stabilization, and discharge planning provided. Pt. minimally receptive to feedback. Pt. unable to retain or effectively process psychoeducation secondary to sxs of psychosis. Pt. remains paranoid towards staff and peers. Pt. discharge focused and ambivalent regarding recommended medication management and aftercare but currently agreeable. Discussed with Family/SO: Yes Was Patient/Family/SO present at Treatment Team Meeting: Yes <Brie Hooper - Last Filed: 06/16/18 15:25> - Diagnosis (1) Depression Status: Chronic Interventions: CBT, START REMERON 06/16/18 12:21 (2) UTI (urinary tract infection) Status: Acute Interventions: INTERNAL MEDICINE CONSULT 06/16/18 12:21 (3) Paranoid delusion Status: Acute Interventions: 06/16/18 12:21 START RISPERIDONE
[2018-06-14] MEDS: Risperidone M tab 1 MG PO SCH (21:03)
--- NOTE | 2018-06-15 13:02 | PCM.PSYCH ---
Initial Psychiatric Evaluation - Initial Psychiatric Evaluation Type of Admission: Voluntary Legal Status: Capacity Chief Complaint (in patient's own words): I wish my life would end History of Present Illness and Precipitating Events: pt is 53ys old female with previous diagnosis of depression, brought to ER by for increased depression, psychosis and suicidal ideation pt has not been compliant with medications or follow up became increasingly depressed reported decreased sleep with early and intermediate insomnia, decreased appetite with significant weight loss, pt has been paranoid believing people on the street talking about her , making fun of her and communicating with her through signals , pt has been having poor concentration with recent memory losses she also has been experiencing visual hallucinations, seeing sha dows,she started experiencing suicidal ideations feeling worthless on the unit pt tearful depressed continues to report passive suicidal ideation without active plan, denied command hallucinations denied homicidal ideation Current Medications: Active Medications Generic Name Dose Route Start Last Admin Trade Name Freq PRN Reason Stop Dose Admin Acetaminophen 650 mg 06/14/18 16:17 Tylenol 325mg Tab PO Q4 PRN Pain, moderate (4-7) Al Hydrox/Mg Hydrox/Simethicone 30 ml 06/14/18 16:17 Maalox Plus 30 Ml PO Q4 PRN Dyspepsia Benztropine Mesylate 0.5 mg 06/14/18 22:00 06/14/18 21:02 Cogentin PO 0.5 mg HS BASSAM Administration Diphenhydramine HCl 50 mg 06/14/18 16:17 Benadryl IM Q6 PRN Extrapyramidal S/S Unable PO Diphenhydramine HCl 50 mg 06/14/18 16:17 Benadryl PO Q6 PRN Extrapyramidal Symptoms Haloperidol 5 mg 06/14/18 16:17 Haldol PO Q4 PRN Agitation Haloperidol Lactate 5 mg 06/14/18 16:17 Haldol IM Q4 PRN Agitation, Unable to Take PO Lorazepam 1 mg 06/14/18 16:17 Ativan PO Q4 PRN Anxiety/Agitation Lorazepam 1 mg 06/14/18 16:17 Ativan IM Q4 PRN Anxiety/Agitation,Unable PO Magnesium Hydroxide 30 ml 06/14/18 16:17 Milk Of Magnesia PO HS PRN Constipation Mirtazapine 7.5 mg 06/14/18 22:00 06/14/18 21:03 Remeron PO 7.5 mg HS BASSAM Administration Risperidone 1 mg 06/14/18 22:00 06/14/18 21:03 Risperdal M-Tab PO 1 mg HS BASSAM Administration Risperidone 1 mg 06/15/18 11:00 Risperdal M-Tab PO DAILY BASSAM Past Psychiatric History - Past Psychiatric History Explanation of prior treatment: one previous hospitalization at [facility], pt non compliant Pertinent Medical Hx (Current Medical&Sleep Prob, Allergies): Allergies Allergy/AdvReac Type Severity Reaction Status Date / Time No Known Allergies Allergy Verified 10/30/17 12:19 No Known Home Med 06/14/18 Mental Status Examination - Personal Presentation Personal Presentation: Looks stated age Additional comments: underweight - Affect Affect: Constricted - Motor Activity Motor Activity: Psychomotor Retardation - Reliability in Providing Information Reliability in Providing Information: Poor, due to altered mood - Speech Speech: Relevant - Mood Mood: Depressed, Anxious - Formal Thought Process Formal Thought Process: Hallucinations, Delusions, Paranoia - Hallucinations/Delusions Hallucinations: Visual, Auditory - Cognitive Functions Orientation: Person, Place Sensorium: Alert Attention/Concentration: Easily distracted Abstract Thinking: Wayne Judgement: Imparied, as evidence by: Lack of insight into illness Memory: Recent impaired, as evidence by: Inability to recall events of the day - Risk Risk: Suicidal, Diminished functioning - Strength & Assets Inventory Strength & Assets Inventory: Family support - Limitations Additional comments: financial stressors DSM 5 DX - DSM 5 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
[2018-06-15] MEDS: Risperidone M tab 1 MG PO SCH ×2 (14:23→21:16)
[2018-06-16] MEDS: Risperidone M tab 1 MG PO SCH (08:41)
[2018-06-16] MEDS: Risperidone M TAB 2 MG PO SCH (21:10)
[2018-06-17] MEDS: Risperidone M tab 1 MG PO SCH (08:33)
--- NOTE | 2018-06-17 11:32 | PCM.PYCHPN ---
Psychiatric Progress Note - Psychiatric Progress Note Patient seen today, length of contact: PT EVALUATED DISCUSSED WITH TEAM CHART REVIEWED Patient Chief Complaint: I feel good when can I leave Problems Identified/Issues Discussed: pt evaluated with treatment team, continues to be guarded evasive and paranoid, affect depressed and dysphoric yet patient minimizes her symptoms, requesting to be discharged with limited insight into illness , psychoeducation provided , discussing with pt importance of complance with medications pt denied command hallucinations denied suicidal or homicidal ideation Medical Problems: one previous hospitalization at [facility], pt non compliant DSM 5 Symptoms Update: major depression recurrent severe with psychotic features Medication Change: Yes (increase risperidone ) Medical Record Reviewed: Yes Mental Status Examination - Cognitive Function Orientation: Person, Place - Mood Mood: Depressed, Anxious - Affect Affect: Constricted - Formal Thought Process Formal Thought Process: Hallucinations, Delusions, Paranoia - Homicidal Ideation Homicidal Ideation: No Goal/Treatment Plan - Goal/Treatment Plan Need for Continued Stay: Severe depression anxiety, Discharge may exacerbated symptoms Progress Toward Problem(s) and Goals/Treatment Plan: remeron 15mg qhs risperidone mtab 3mg and cogentin CBT group and supportive therapy
--- NOTE | 2018-06-17 11:39 | PCM.PYCHPN ---
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, she continues to be paranoid, stating she came in for depression but know she knows something else is being planned against her , reassurance provided , and pt educated about importance of compliance with medications and the need to continue with treatment pt denied command hallucinations denied suicidal or homicidal ideation Medical Problems: one previous hospitalization at [facility], pt non compliant DSM 5 Symptoms Update: major depression recurrent severe with psychotic features Medication Change: No Medical Record Reviewed: Yes Mental Status Examination - Cognitive Function Orientation: Person, Place, Situation Memory: Impaired, Recent Attention: WNL Concentration: Poor Association: WNL Fund of Knowledge: WNL Decription of patient's judgement and insights: poor insight fair judgment - Mood Mood: Depressed, Anxious - Affect Affect: Constricted - Speech Speech: Soft - Formal Thought Process Formal Thought Process: Delusions, Paranoia - Suicidal Ideation Suicidal Ideation: No - Homicidal Ideation Homicidal Ideation: No Goal/Treatment Plan - Goal/Treatment Plan Need for Continued Stay: Severe depression anxiety, Discharge may exacerbated symptoms Progress Toward Problem(s) and Goals/Treatment Plan: remeron 15mg qhs risperidone mtab 3mg and cogentin monitor pt for psychopharmacological effects and side effect profile CBT group and supportive therapy
[2018-06-17] MEDS: Risperidone M TAB 2 MG PO SCH (21:09)
[2018-06-18] MEDS: Risperidone M tab 1 MG PO SCH (08:45)
--- NOTE | 2018-06-18 14:02 | PCM.PYCHPN ---
Psychiatric Progress Note - Psychiatric Progress Note Patient seen today, length of contact: PT EVALUATED DISCUSSED WITH TEAM CHART REVIEWED Patient Chief Complaint: I wish I could go home Problems Identified/Issues Discussed: pt evaluated , seen in day room, less isolative in her room, reported improved sleep and appetite, no reported side effects of medications , continues to be guarded and paranoid with limited insight into illness , pt denied command hallucinations denied suicidal or homicidal ideation Medical Problems: one previous hospitalization at [facility], pt non compliant DSM 5 Symptoms Update: major depression recurrent severe with psychotic features Medication Change: No Medical Record Reviewed: Yes Mental Status Examination - Cognitive Function Orientation: Person, Place, Situation Memory: Impaired, Recent Attention: WNL Concentration: Poor Association: WNL Fund of Knowledge: WNL Decription of patient's judgement and insights: poor insight fair judgment - Mood Mood: Depressed, Anxious - Affect Affect: Constricted - Speech Speech: Soft - Formal Thought Process Formal Thought Process: Delusions, Paranoia - Suicidal Ideation Suicidal Ideation: No - Homicidal Ideation Homicidal Ideation: No Goal/Treatment Plan - Goal/Treatment Plan Need for Continued Stay: Severe depression anxiety, Discharge may exacerbated symptoms Progress Toward Problem(s) and Goals/Treatment Plan: remeron 15mg qhs risperidone mtab 3mg and cogentin monitor pt for psychopharmacological effects and side effect profile CBT group and supportive therapy
[2018-06-18] MEDS: Risperidone M TAB 2 MG PO SCH (21:09)
--- NOTE | 2018-06-19 08:35 | PCM.PYCHPN ---
Psychiatric Progress Note - Psychiatric Progress Note Patient seen today, length of contact: PT EVALUATED DISCUSSED WITH TEAM CHART REVIEWED Patient Chief Complaint: pt has remained paranoid and guarded and still feels very anxious and remains internally preoccupied with poor insight regarding her psychosis and need further stabilization. Medication Change: No Medical Record Reviewed: Yes Mental Status Examination - Cognitive Function Orientation: Person, Place, Situation Memory: Impaired, Recent Attention: WNL Concentration: Poor Association: WNL Fund of Knowledge: WNL - Mood Mood: Depressed, Anxious - Affect Affect: Constricted - Speech Speech: Soft - Formal Thought Process Formal Thought Process: Delusions, Paranoia - Suicidal Ideation Suicidal Ideation: No - Homicidal Ideation Homicidal Ideation: No Goal/Treatment Plan - Goal/Treatment Plan Need for Continued Stay: Severe depression anxiety, Discharge may exacerbated symptoms Progress Toward Problem(s) and Goals/Treatment Plan: will continue to stabilize pt with meds and therapy. disposition as per dr kelly.
[2018-06-19] MEDS: Risperidone M tab 1 MG PO SCH (10:17)
[2018-06-19] MEDS: Risperidone M TAB 2 MG PO SCH (21:11)
[2018-06-20] MEDS: Risperidone M tab 1 MG PO SCH (08:49)
--- NOTE | 2018-06-20 14:20 | PCM.PYCHPN ---
Psychiatric Progress Note - Psychiatric Progress Note Patient seen today, length of contact: PT EVALUATED DISCUSSED WITH TEAM CHART REVIEWED Patient Chief Complaint: pt has remained delusional and responding to hallucinations and remains paranoid and guarded and still feels very anxious and remains internally preoccupied with poor insight regarding her psychosis and need further stabilization. Medication Change: No Medical Record Reviewed: Yes Mental Status Examination - Cognitive Function Orientation: Person, Place, Situation Memory: Impaired, Recent Attention: WNL Concentration: Poor Association: WNL Fund of Knowledge: WNL - Mood Mood: Depressed, Anxious - Affect Affect: Constricted - Speech Speech: Soft - Formal Thought Process Formal Thought Process: Delusions, Paranoia - Suicidal Ideation Suicidal Ideation: No - Homicidal Ideation Homicidal Ideation: No Goal/Treatment Plan - Goal/Treatment Plan Need for Continued Stay: Severe depression anxiety, Discharge may exacerbated symptoms Progress Toward Problem(s) and Goals/Treatment Plan: will continue to stabilize pt with meds and therapy. disposition as per dr kelly.
[2018-06-20] MEDS: Risperidone M TAB 2 MG PO SCH (21:19)
[2018-06-21] MEDS: Risperidone M tab 1 MG PO SCH (09:04)
--- NOTE | 2018-06-21 11:07 | PCM.PYCHPN ---
Psychiatric Progress Note - Psychiatric Progress Note Patient seen today, length of contact: PT EVALUATED DISCUSSED WITH TEAM CHART REVIEWED Patient Chief Complaint: I am worried about the cost of the food here Problems Identified/Issues Discussed: pt evaluated , with treatment team, continues to be guarded, paranoid, with limited insight into illness, pt continues to believe that her hospitalization is part of a plan against her , reported no changes in sleep , no reported side effects of medications, discussed increasing dose of risperidone, discussed arranging family meeting with , psychoeducation provided in reference to compliance with medications pt denied command hallucinations, denied suicidal or homicidal ideation Medical Problems: one previous hospitalization at [facility], pt non compliant DSM 5 Symptoms Update: major depression recurrent severe with psychotic features Medication Change: Yes (increase risperidone ) Medical Record Reviewed: Yes Mental Status Examination - Cognitive Function Orientation: Person, Place, Situation Memory: Impaired, Recent Attention: WNL Concentration: Poor Association: WNL Fund of Knowledge: WNL - Mood Mood: Depressed, Anxious - Affect Affect: Constricted - Speech Speech: Soft - Formal Thought Process Formal Thought Process: Delusions, Paranoia - Suicidal Ideation Suicidal Ideation: No - Homicidal Ideation Homicidal Ideation: No Goal/Treatment Plan - Goal/Treatment Plan Need for Continued Stay: Severe depression anxiety, Discharge may exacerbated symptoms Progress Toward Problem(s) and Goals/Treatment Plan: remeron 15mg qhs increase risperidone mtab 3mg qhs and 1mg daily and cogentin 1mg qhs monitor pt for psychopharmacological effects and side effect profile CBT group and supportive therapy
[2018-06-21] MEDS ORDERED: Risperidone M tab 1 MG PO SCH (22:00)
[2018-06-22] MEDS: Risperidone M tab 1 MG PO SCH (08:55)
--- NOTE | 2018-06-22 10:18 | PCM.PYCHPN ---
Psychiatric Progress Note - Psychiatric Progress Note Patient seen today, length of contact: PT EVALUATED DISCUSSED WITH TEAM CHART REVIEWED Patient Chief Complaint: I want to meet with my today Problems Identified/Issues Discussed: pt evaluated , seen in day room, reported better mood and feeling less anxious, continues to be paranoid and guarded , no reported side effects with increase in risperidone , improved sleep and appetite pt denied command hallucinations, denied suicidal or homicidal ideation Medical Problems: one previous hospitalization at [facility], pt non compliant DSM 5 Symptoms Update: major depression with psychotic features rule ut schizophrenia paranoid type Medication Change: No (increase risperidone ) Medical Record Reviewed: Yes Mental Status Examination - Cognitive Function Orientation: Person, Place, Situation Memory: Impaired, Recent Attention: WNL Concentration: Poor Association: WNL Fund of Knowledge: WNL - Mood Mood: Depressed, Anxious - Affect Affect: Constricted - Speech Speech: Soft - Formal Thought Process Formal Thought Process: Delusions, Paranoia - Suicidal Ideation Suicidal Ideation: No - Homicidal Ideation Homicidal Ideation: No Goal/Treatment Plan - Goal/Treatment Plan Need for Continued Stay: Severe depression anxiety, Discharge may exacerbated symptoms Progress Toward Problem(s) and Goals/Treatment Plan: remeron 15mg qhs risperidone mtab 3mg qhs and 1mg daily and cogentin 1mg qhs monitor pt for psychopharmacological effects and side effect profile family meeting planned today CBT group and supportive therapy
[2018-06-22] MEDS: Haloperidol Lactate 2 mg/ml Liquid PO SCH (21:04)
--- NOTE | 2018-06-23 14:50 | PCM.PYCHPN ---
Psychiatric Progress Note - Psychiatric Progress Note Patient seen today, length of contact: PT EVALUATED DISCUSSED WITH TEAM CHART REVIEWED Patient Chief Complaint: I am alright Problems Identified/Issues Discussed: pt evaluated , appears less irritable, reported better sleep with haldol, observed attending groups, discussed increasing dose of haldol , no reported side effects pt denied command hallucinations, denied suicidal or homicidal ideation Medical Problems: one previous hospitalization at [facility], pt non compliant DSM 5 Symptoms Update: major depression with psychotic features rule out schizophrenia paranoid type Medication Change: No (increase haldol) Medical Record Reviewed: Yes Mental Status Examination - Cognitive Function Orientation: Person, Place, Situation Memory: Impaired, Recent Attention: WNL Concentration: Poor Association: WNL Fund of Knowledge: WNL - Mood Mood: Depressed, Anxious - Affect Affect: Constricted - Speech Speech: Soft - Formal Thought Process Formal Thought Process: Delusions, Paranoia - Suicidal Ideation Suicidal Ideation: No - Homicidal Ideation Homicidal Ideation: No Goal/Treatment Plan - Goal/Treatment Plan Need for Continued Stay: Severe depression anxiety, Discharge may exacerbated symptoms Progress Toward Problem(s) and Goals/Treatment Plan: remeron 15mg qhs increase haldol 2mg qhs and 0.5 mg daily cogentin 1mg qhs monitor pt for psychopharmacological effects and side effect profile CBT group and supportive therapy
[2018-06-23] MEDS: Haloperidol Lactate 2 mg/ml Liquid PO SCH (21:12)
[2018-06-24] MEDS ORDERED: Haloperidol Lactate 2 mg/ml Liquid PO SCH ×2 (09:00→22:00)
--- NOTE | 2018-06-24 15:31 | PCM.PYCHPN ---
Psychiatric Progress Note - Psychiatric Progress Note Patient seen today, length of contact: PT EVALUATED DISCUSSED WITH TEAM CHART REVIEWED Patient Chief Complaint: I need to make money so I can pay fo the food here Problems Identified/Issues Discussed: pt evaluated , reported feeling less depressed, affect less constricted, pt seen attending groups, improved sleep and appetite , pt continues to have difficulty retain information continues to be paranoid believing there is secondary gain in her hospitalizations , discussed increasing dose of haldol pt denied command hallucinations, denied suicidal or homicidal ideation Medical Problems: one previous hospitalization at [facility], pt non compliant DSM 5 Symptoms Update: major depression with psychotic features rule out schizophrenia paranoid type Medication Change: No (increase haldol) Medical Record Reviewed: Yes Mental Status Examination - Cognitive Function Orientation: Person, Place, Situation Memory: Impaired, Recent Attention: WNL Concentration: Poor Association: WNL Fund of Knowledge: WNL - Mood Mood: Depressed, Anxious - Affect Affect: Constricted - Speech Speech: Soft - Formal Thought Process Formal Thought Process: Delusions, Paranoia - Suicidal Ideation Suicidal Ideation: No - Homicidal Ideation Homicidal Ideation: No Goal/Treatment Plan - Goal/Treatment Plan Need for Continued Stay: Severe depression anxiety, Discharge may exacerbated symptoms Progress Toward Problem(s) and Goals/Treatment Plan: remeron 15mg qhs increase haldol 5mg qhs cogentin 1mg qhs monitor pt for psychopharmacological effects and side effect profile CBT group and supportive therapy
--- NOTE | 2018-06-25 14:22 | PCM.PYCHPN ---
Psychiatric Progress Note - Psychiatric Progress Note Patient seen today, length of contact: PT EVALUATED DISCUSSED WITH TEAM CHART REVIEWED Patient Chief Complaint: I am feeling better Problems Identified/Issues Discussed: pt evaluated , reported mood is better , affect less constricted, pt seen attending groups, improved sleep and appetite , no reported side effects with the increase in haldol, more engaged in treatment pt denied command hallucinations, denied suicidal or homicidal ideation Medical Problems: one previous hospitalization at [facility], pt non compliant DSM 5 Symptoms Update: major depression with psychotic features Medication Change: No Medical Record Reviewed: Yes Mental Status Examination - Cognitive Function Orientation: Person, Place, Situation Memory: Impaired, Recent Attention: WNL Concentration: Poor Association: WNL Fund of Knowledge: WNL - Mood Mood: Depressed, Anxious - Affect Affect: Constricted - Speech Speech: Soft - Formal Thought Process Formal Thought Process: Delusions, Paranoia - Suicidal Ideation Suicidal Ideation: No - Homicidal Ideation Homicidal Ideation: No Goal/Treatment Plan - Goal/Treatment Plan Need for Continued Stay: Severe depression anxiety, Discharge may exacerbated symptoms Progress Toward Problem(s) and Goals/Treatment Plan: remeron 15mg qhs haldol 5mg qhs cogentin 1mg qhs monitor pt for psychopharmacological effects and side effect profile CBT group and supportive therapy
--- NOTE | 2018-06-26 10:06 | PCM.PYCHPN ---
Psychiatric Progress Note - Psychiatric Progress Note Patient seen today, length of contact: Pt evaluated, case discussed w/ team, chart reviewed Patient Chief Complaint: "I'm okay." Problems Identified/Issues Discussed: Patient reports that her mood continues to improve, w/ improved sleep and appetite. She continues to have constricted affect, but has been engaging appropriately w/ others. She is more goal oriented. She denies acute AH/VH/paranoia/SI/HI. Medication Change: No Medical Record Reviewed: Yes Consults ordered or reviewed: Medicine consult Mental Status Examination - Cognitive Function Orientation: Person, Place, Situation, Time Memory: Intact Association: WN Fund of Knowledge: [facility] Decription of patient's judgement and insights: Improving I/J - Mood Mood: Depressed, Anxious - Affect Affect: Constricted - Speech Speech: Soft - Formal Thought Process Formal Thought Process: No Impairment Psychotic Thoughts and Behaviors: Denies acute AH/VH/paranoia - Suicidal Ideation Suicidal Ideation: No - Homicidal Ideation Homicidal Ideation: No Goal/Treatment Plan - Goal/Treatment Plan Need for Continued Stay: Severe depression anxiety, Discharge may exacerbated symptoms Progress Toward Problem(s) and Goals/Treatment Plan: Major Depressive Disorder w/ Psychotic Features -Continue Xander Jesus Cogentin -Individual and group therapy -Psychoeducation -Medicine consult -Disposition planning Estimated Date of D/C: 06/28/18
--- NOTE | 2018-06-27 09:38 | PCM.PYCHPN ---
Psychiatric Progress Note - Psychiatric Progress Note Patient seen today, length of contact: Pt evaluated, case discussed w/ team, chart reviewed Patient Chief Complaint: "I'm okay." Problems Identified/Issues Discussed: Patient continues to report that her mood has improved. She reports improved sleep/appetite and denies acute AH/VH/SI/HI. She continues to have constricted affect, but is able to brighten and engages appropriately w/ card writer hand. Medication Change: No Medical Record Reviewed: Yes Consults ordered or reviewed: Medicine consult Mental Status Examination - Cognitive Function Orientation: Person, Place, Situation, Time Memory: Intact Association: WNL Fund of Knowledge: [facility] Decription of patient's judgement and insights: Improving I/J - Mood Mood: Neutral - Affect Affect: Constricted - Speech Speech: Soft - Formal Thought Process Formal Thought Process: No Impairment Psychotic Thoughts and Behaviors: Denies acute AH/VH/paranoia - Suicidal Ideation Suicidal Ideation: No - Homicidal Ideation Homicidal Ideation: No Goal/Treatment Plan - Goal/Treatment Plan Need for Continued Stay: Discharge may exacerbated symptoms Progress Toward Problem(s) and Goals/Treatment Plan: Major Depressive Disorder w/ Psychotic Features -Continue Xander Jesus Cogentin -Individual and group therapy -Psychoeducation -Medicine consult -Disposition planning Estimated Date of D/C: 06/28/18
[2018-06-28 09:35] VITALS: BP 89/60; PULSE 70; RESP 16; TEMP 97.7
--- NOTE | 2018-06-28 10:27 | PCM.PYCHDC ---
Mental Status Examination - Mental Status Examination Orientation: Person, Place, Situation Memory: Intact Mood: Neutral Affect: Broad Speech: Appropriate Attention: WNL Concentration: WNL Association: WNL Fund of Knowledge: WNL Formal Thought Process: Circumstantial Description of patient's judgement and insight: poor insight fair judgment Psychotic Thoughts and Behaviors: pt on discharge denied perceptual disturbances, non elicited Suicidal Ideation: No Current Homicidal Ideation?: No Discharge Summary - Discharge Note Reason for Hospitalization: pt is 53ys old female with previous diagnosis of depression, brought to ER by for increased depression, psychosis and suicidal ideation pt has not been compliant with medications or follow up became increasingly depressed reported decreased sleep with early and intermediate insomnia, decreased appetite with significant weight loss, pt has been paranoid believing people on the street talking about her , making fun of her and communicating with her through signals , pt has been having poor concentration with recent memory losses she also has been experiencing visual hallucinations, seeing shadows,she started experiencing suicidal ideations feeling worthless on the unit pt tearful depressed continues to report passive suicidal ideation without active plan, denied command hallucinations denied homicidal ideation Consultations:: List each consultation separately and include: 1. Reason for request. 2. Findings. 3. Follow-up Summary of Hospital Course include:: 1. Description of specific treatment plan utilized for patients during their course of treatmen. 2. Summarize the time- course for resolution of acute symptoms and/or regressed behaviors. 3. Describe issues identified and worked on during hospitalization. 4. Describe medication utilized. 5. Describe medical problems identified and treated. 6. Reassessment of suicide risk Summary of Hospital Course: pt on admission presented with depressed mod anxious affect poor sleep, poor appetite and paranoid delusions, pt was placed on remeron and risperdal, there was improvement in sleep and appetite yet patient continued to have paranoid delusions, risperidone was cross tapered with haldol, pt gradually became less guarded and less paranoid more interactive with staff and other patients pt was compliant with treatment attended groups, no reported side effects of medications on discharge mental status was stable, pt denied suicidal or homicidal ideation denied perceptual disturbances - Diagnosis (1) Depression Current Visit: Yes Status: Chronic (2) UTI (urinary tract infection) Current Visit: No Status: Acute (3) Paranoid delusion Current Visit: Yes Status: Acute - Final Diagnosis (DSM 5) Condition upon Discharge: STABLE DSM 5: major depression recurrent severe with psychotic features Disposition: HOME/ ROUTINE Follow-up Treatment Plan: [facility] outpatient Prescriptions/Medication Reconciliation: Benztropine [Cogentin] 1 mg PO HS 30 Days #30 tab Haloperidol [Haldol] 5 mg PO HS 30 Days #30 tab Mirtazapine [Remeron] 15 mg PO HS 30 Days #30 tab - Antipsychotic Medications Pt discharged on 2 or more routine antipsychotic medications: No
== END 2018-06-28 15:40 | disposition home or self-care (01) | DRG 751 ==
LOC: H.ER 10:38 → H.ERHOLD 13:13 → H.PSYCH 15:04
PROVIDERS: ADMIT Psychiatry & Neurology Psychiatry; ATTEND Psychiatry & Neurology Psychiatry
PROC: GZHZZZZ Group Psychotherapy (ICD-10-PCS; principal; 2018-06-14)
PROC: GZ58ZZZ Individual Psychotherapy, Cognitive-Behavioral (ICD-10-PCS; 2018-06-14)
PROC: GZ56ZZZ Individual Psychotherapy, Supportive (ICD-10-PCS; 2018-06-14)
DX: F33.3 Major depressive disorder, recurrent, severe with psychotic symptoms (principal); Z91.14 Patient's other noncompliance with medication regimen; R45.851 Suicidal ideations; F41.9 Anxiety disorder, unspecified; M81.0 Age-related osteoporosis without current pathological fracture; Z91.19 Patient's noncompliance with other medical treatment and regimen; G47.00 Insomnia, unspecified; R63.4 Abnormal weight loss; Z68.1 Body mass index [BMI] 19.9 or less, adult